=== PATIENT | female | born 1945 | race Caucasian/White ===

== ENCOUNTER → 2017-01-14 | Outpatient (CLI) | payer OTHER, MEDICARE ==
[~2017-01-14] MED LIST: ALPRAZOLAM 0.50.5 M1 PO; APAP500 PO; ASPIRIN325 PO; CLONAZEPAM 1 MG1 M1 PO; CYMBALTA20 MG PO; DESYREL50 MG PO; FLEXERIL PO; GELNIQUE30 GM; HYDROCODON-ACE1 EAC7 PO; LEXAPRO 10 MG T10 M1 PO; NEURONTIN 400400 M1 PO; NEURONTIN800 MG PO; NORCO 5-325 TA1 EACH PO; PREMARIN; PREMARIN VAGI42.5 G1 VAG; TRAMADOL 50 MG50 MG PO; TRAZODONE HCL50 MG PO; VOLTAREN GEL 1100 G1 TOP; WELCHOL 625 MG625 MG PO; [UNRECOGNIZED DRUG - OTHER]
== END ==
LOC: BC 08:19
DX: Z12.31 Encounter for screening mammogram for malignant neoplasm of breast (principal)

== ENCOUNTER 2017-05-16 15:37 | Emergency (ER) | payer OTHER, MEDICARE ==
[~2017-05-16] VITALS: Ht 157.5 cm; Wt 59.0 kg
== END 2017-05-16 17:10 | disposition home or self-care (01) ==
LOC: ER 15:37
DX: S00.83XA Contusion of other part of head, initial encounter (principal); F41.9 Anxiety disorder, unspecified; K21.9 Gastro-esophageal reflux disease without esophagitis; F43.10 Post-traumatic stress disorder, unspecified; Z98.890 Other specified postprocedural states; Z88.2 Allergy status to sulfonamides; Z88.8 Allergy status to other drugs, medicaments and biological substances; W01.198A Fall on same level from slipping, tripping and stumbling with subsequent striking against other object, initial encounter; Y93.89 Activity, other specified; Y92.89 Other specified places as the place of occurrence of the external cause; Y99.8 Other external cause status

== ENCOUNTER 2018-01-17 10:09 | Emergency (ER) | payer OTHER, MEDICARE ==
[~2018-01-17] VITALS: Ht 160 cm; Wt 83.9 kg
[2018-01-17] MEDS ORDERED: LEXAPRO20 MG PO (10:30)
[2018-01-17] MEDS ORDERED: VOLTAREN GEL 1100 G1 TOP (10:32)
[2018-01-17] MEDS ORDERED: KEFLEX500 M1 PO (12:39)
== END 2018-01-17 12:54 | disposition home or self-care (01) ==
LOC: ER 10:09
DX: S61.511A Laceration without foreign body of right wrist, initial encounter (principal); S60.211A Contusion of right wrist, initial encounter; K21.9 Gastro-esophageal reflux disease without esophagitis; F41.1 Generalized anxiety disorder; Z90.49 Acquired absence of other specified parts of digestive tract; Z88.2 Allergy status to sulfonamides; Z88.8 Allergy status to other drugs, medicaments and biological substances; W18.2XXA Fall in (into) shower or empty bathtub, initial encounter; Y93.89 Activity, other specified; Y92.89 Other specified places as the place of occurrence of the external cause; Y99.8 Other external cause status

== ENCOUNTER → 2018-01-27 | Outpatient (CLI) | payer OTHER, MEDICARE ==
[~2018-01-27] MED LIST changes: +KEFLEX500 M1 PO; +LEXAPRO20 MG PO
== END ==
LOC: RAD 03:23
DX: Z12.31 Encounter for screening mammogram for malignant neoplasm of breast (principal)

== ENCOUNTER → 2019-01-28 | Outpatient (CLI) | payer OTHER, MEDICARE | LOC: RAD 01:10 | DX: Z12.31 Encounter for screening mammogram for malignant neoplasm of breast (principal) ==

== ENCOUNTER → 2020-02-15 | Outpatient (CLI) | payer OTHER, MEDICARE | LOC: BC 13:02 | PROVIDERS: ATTEND Internal Medicine | DX: Z12.31 Encounter for screening mammogram for malignant neoplasm of breast (principal) ==

== ENCOUNTER → 2021-02-27 | Outpatient (CLI) | payer OTHER, MEDICARE | LOC: BC 11:03 | PROVIDERS: ATTEND Internal Medicine | DX: Z12.31 Encounter for screening mammogram for malignant neoplasm of breast (principal); N64.89 Other specified disorders of breast ==